=== PATIENT | male | born 1960 | race Caucasian/White ===

== ENCOUNTER 2024-09-02 12:56 | Emergency (ER) | payer OTHER, SELFPAY ==
[2024-09-02 12:59] VITALS: BP 136/74
--- NOTE | 2024-09-02 15:38 | ED.GENMED ---
History of Present Illness
General
Chief Complaint: DVT/Possible Blood Clot
Source: patient
Exam Limitations: none
Time Seen by Provider: 09/02/24 15:04
Nursing documentation reviewed up to this point in time: agreed with
History of Present Illness
History of Present Illness:
The patient is a very pleasant 64-year-old man who reports that he has developed swelling behind his right knee about 4 to 5 days ago. Patient grew concerned because he recently had a knee replacement surgery done about 6 weeks ago in [place].
He denies chest pain or shortness of breath. He denies fevers and chills. He denies recent injury, skin redness or any other concerns. Patient denies weakness and numbness of feet and legs.
Past History
Past History
ED Past Medical History: HTN
ED Past Surgical History: Orthopedic
Social History
Tobacco: Non-smoker
Alcohol: Other
Drug: None
Personal:
Living: with family
Employment: Other
Family History
Family History: Other
Review of Systems
Review of Systems
Allergies reviewed?: Yes
All Other Systems: ROS reviewed and negative except as documented in HPI and ROS
Constitutional: Reports no symptoms
EENT: Reports no symptoms
Respiratory: Reports no symptoms
Cardiac: Reports no symptoms
ABD/GI: Reports no symptoms
: Reports no symptoms
Musculoskeletal: Reports other
Skin: Reports no symptoms
Neurological: Reports no symptoms
Endocrine: Reports no symptoms
Hematologic/Lymphatic: Reports no symptoms
Psychiatric: Reports no symptoms
Phy Exam
Physical Exam
Physical Exam:
Physical Exam
General: no apparent distress, not acutely ill. Well appearing, smiling, walking around room
Neck: supple.
Heart: s1/s2 regular rate and rhythm
Lungs: no acute respiratory distress.
Abdomen: Soft
Neuro: alert and oriented. no focal neurological deficits. 5 out of 5 strength in all extremities
Skin: No erythema or warmth of right lower extremity.
Psychiatric: well kept. interactive and cooperative
Extremities: Firm fullness and swelling just behind right knee. Strong pulses in right foot. No erythema or streaking redness of right lower extremity
Course
Orders/Labs/Results
Orders:
Orders
09/02/24 13:05
US Periph Venous LOWER Ext RT Urgent
Comment: six wks knee replacement
Reason For Exam: right behind knee pain and swelling
Vital Signs
Initial and Last Documented VS:
Initial Vital Signs
Temp Pulse Resp BP Pulse Ox
98.0 F 76 16 136/74 98
09/02/24 12:59 09/02/24 12:59 09/02/24 12:59 09/02/24 12:59 09/02/24 12:59
Last Documented Vital Signs
Temp Pulse Resp BP Pulse Ox
98.0 F 76 16 136/74 98
09/02/24 12:59 09/02/24 12:59 09/02/24 12:59 09/02/24 12:59 09/02/24 12:59
MDM/Problems Addressed
Differential Diagnosis Includes:
DVT, Portillo's cyst, hematoma
MDM/Problems Addressed:
Patient presents with acute swelling behind right knee
Chronic conditions affecting care: HTN
Acute Exacerbation and/or Progression of Chronic Illness:
Patient is acutely hypertensive but extremely mild
Acute Exacerbation and/or Progression of Chronic Illness: HTN
*Radiology
Radiology exam reviewed: radiology read reviewed
*Pulse Oximetry
Patient hypoxic: no
*EKG
Interpreted by ED Provider?: NA
*Electric Welder Interpretation
Rate: Electric Welder- N/A
*Critical Care Note
Total Time (30-74mins, 75-104mins- exclusive of procedures): Not Applicable
Data Reviewed
Source: patient and spouse
Patient Management
Social determinants of health affecting care: Living situation and Strong social support
Escalation/DeEscalation of care consider admission/obs:
Patient looks extremely well and comfortable. He has had no fever. There is no tenderness behind the right knee so it is doubtful there is an abscess or infection. I suspect patient has a postoperative seroma. Patient is happy to go home and
reassures me that he will call his orthopedist in the morning. Patient given a copy of the ultrasound report to share with his orthopedist. Patient has excellent strength, sensation and pulses of her right lower extremity
ED Attending Note
-
Portions of this chart may have been created with voice recognition software.� Occasional wrong word or��sound alike� substitutions may have occurred due to the inherent limitations of voice recognition software.
Discharge Plan
Departure
Patient Disposition: Home (Routine Discharge)
Date of Disposition: 09/02/24
Time of Disposition: 15:36
Patient with high blood pressure during this ER visit?: Yes
Condition: Good
Covid-19: Not Applicable
Discharge Problem:
right calf seroma
Instructions: Seroma, BLOOD PRESSURE
Referrals:
Lev Hastings MD [Family Provider] -
Activity Restrictions/Additional Instructions:
Your ultrasound showed there is a fluid collection behind your right knee. There is no sign of any blood clot. Please call your orthopedic doctor tomorrow morning to go over ultrasound report.
Interventions
Interventions:
*Risk Screen - Suicide Last Done: 09/02/24 13:04
*Neglect/Abuse Screening Last Done: 09/02/24 12:59
Discharge Date and Time
Print Language: SLOVAK
[2024-09-02 15:43] VITALS: BP 136/71; BMI 24.4
== END 2024-09-02 15:47 | disposition home or self-care (01) ==
LOC: EMR 12:56
PROVIDERS: EMERGENCY PHYSICIAN Emergency Medicine; FAMILY PHYSICIAN Family Medicine
DX: S80.11XA Contusion of right lower leg, initial encounter (principal); M22.41 Chondromalacia patellae, right knee; X58.XXXA Exposure to other specified factors, initial encounter; I10 Essential (primary) hypertension; Z96.659 Presence of unspecified artificial knee joint
CPT/HCPCS: 99284; 93971; 96374; 96375